=== PATIENT | male | born 1945 | race Caucasian/White ===

== ENCOUNTER → 2017-02-09 | Outpatient (CLI) | payer OTHER ==
[~2017-02-09] MED LIST: ASPEC81 PO; CLOP1TAB15 PO; LISI40TA PO; LRT5 PO; METO1TAB69 PO; NTRGSL/4 UT; PRAV20TA PO
== END ==
LOC: C.LABBC 09:02
PROVIDERS: ATTEND Urology
DX: R97.20 Elevated prostate specific antigen [PSA] (principal)

== ENCOUNTER → 2018-04-07 | Outpatient (CLI) | payer OTHER ==
[~2018-04-07] MED LIST changes: +METO100T44 PO; -METO1TAB69 PO
[2018-04-07 13:32] LABS: BASO % 0.7 %; BASO ABS # 0.03 K/uL (0-0.2); EOS ABS # 0.26 K/uL (0-0.5); HEMATOCRIT 50.6 % (42-52); HEMOGLOBIN 17.4 g/dL (14.0-18.0); IG# 0.03 K/uL (0.00-0.02); LYMPH % 27.5 %; LYMPH ABS # 1.19 K/uL (1.2-3.4); MEAN CELL VOLUME 90.4 fL (80-100); MEAN CORPUSCULAR HEMOGLOBIN 31.1 pg (25-34); MEAN CORPUSCULAR HGB CONC 34.4 g/dl (32-36); MEAN PLATELET VOLUME 10.6 fL (7.4-10.4); MONO % 11.3 %; MONO ABS # 0.49 K/uL (0.11-0.59); NEUT % 53.8 %; NEUT ABS # 2.33 K/uL (1.4-6.5); PLATELET COUNT 119 K/uL (130-400); RED CELL DISTRIBUTION WIDTH CV 14.2 % (11.5-14.5); WHITE BLOOD COUNT 4.33 K/uL (4.8-10.8)
[2018-04-07 14:02] LABS: HEMOGLOBIN A1C 5.8 % (4.5-5.6)
[2018-04-07 14:14] LABS: ALBUMIN 3.7 gm/dl (3.4-5.0); ALT/SGPT 20 U/L (12-78); AST/SGOT 19 U/L (15-37); BLOOD UREA NITROGEN 17 mg/dl (7-18); CALCIUM 8.3 mg/dl (8.5-10.1); CARBON DIOXIDE 29 mmol/L (21-32); CREATININE 1.16 mg/dl (0.60-1.40); GLUCOSE 92 mg/dl (70-99); POTASSIUM 4.1 mmol/L (3.5-5.1); SODIUM 139 mmol/L (136-145)
[2018-04-07 14:26] LABS: ALKALINE PHOSPHATASE 68 U/L (45-117); CHOLESTEROL 217 mg/dl (0-200); LDL CHOLESTEROL CALCULATED 145 mg/dl
== END | disposition home or self-care (01) ==
LOC: C.LABPBG 07:30
PROVIDERS: ATTEND Internal Medicine
DX: I25.10 Atherosclerotic heart disease of native coronary artery without angina pectoris (principal); I10 Essential (primary) hypertension; E78.5 Hyperlipidemia, unspecified; R73.03 Prediabetes; D69.6 Thrombocytopenia, unspecified; R97.20 Elevated prostate specific antigen [PSA]; N40.1 Benign prostatic hyperplasia with lower urinary tract symptoms

== ENCOUNTER 2023-10-23 16:49 | Observation (INO) ==
[2023-10-23] MEDS ORDERED: ONDANSETRON INJ 2 MG/ML 2 ML VIAL IV STA (17:00)
[2023-10-23] MEDS ORDERED: SODIUM CHLORIDE 0.9% 500 ML IV STA (17:00)
--- NOTE | 2023-10-23 17:00 | Emergency Department Note ---
Impression & Plan Atypical chest pain, Hx of CABG, Nausea, Back pain ED Provider Note Provider: Fran Guillermo MD DATE OF SERVICE: 10/23/2023 CHIEF COMPLAINT: Chest back arm pain, nausea HISTORY OF PRESENT ILLNESS: Patient is a 77-year-old gentleman history of hiatal hernia, CAD with CABG in the distant past, BPH, and hypertension presenting here today reporting onset 2 days ago of pain in his back to left chest region that is been worsening. Endorses some nausea has not been able to eat since yesterday. Fairly significant pain in the back to the left forearm. Hurts more with movements particularly in his back and when he touches his left forearm. 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 Denies obvious trauma. Denies any abdominal pain reports some nausea. Denies difficulty breathing. Denies travel or leg swelling. Reports compliance with home baby aspirin. Did take some ibuprofen that helped with the pain earlier. About an hour and a half prior to arrival the patient had a brief episode of sweating and with these complaints family thought he should come here for evaluation. Does not follow that closely with doctors according to family. PAST MEDICAL HISTORY: As noted above MEDICATIONS: Reviewed home medications. SOCIAL HISTORY: , non-smoker PHYSICAL EXAM: GENERAL: alert and oriented in no acute distress on stretcher Head: normocephalic and atraumatic EYES: No injection, discharge or icterus. PERRL, EOMI. NECK: Trachea midline. Supple although some pain at the base of the lower neck to upper back with palpation of the area without significant contusion or hematoma appreciated. ENT: Mucous membranes pink and moist. LUNGS: Airway patent. No retractions. Breath sounds clear HEART: Regular rate and rhythm. No chest wall tenderness ABDOMEN: Soft and non-tender, without guarding or rebound. SKIN: Acyanotic, warm, dry, without rashes EXTREMITIES: Without swelling, tenderness or deformity with a little bit of pain to the left forearm when touching but soft compartment. Neurovascular intact distally. NEUROLOGICAL: No focal deficits. No aphasia. No facial droop or slurred speech. Normal strength and tone in the extremities. Sensation to gross touch normal. Ambulatory. EK bpm normal sinus rhythm. No PVC or PAC. No acute ST segment elevation with a QTc of 396. Some nonspecific lateral T wave changes noted. CONTINUOUS CARDIAC MONITORING: was ordered and showed a heart rate of 70s to 80s bpm in normal sinus rhythm PDMP was checked without noted issue. Patient's laboratory studies and imaging reviewed. Differential includes Cardiac ischemia, aortic dissection, pulmonary embolism, pneumothorax, pneumonia, pericarditis, myocarditis, esophageal rupture, GERD, cholecystitis, pancreatitis, musculoskeletal, as well as other pathologies. IMPRESSION/MEDICAL DECISION MAKING: Patient with distant cardiac history on aspirin here with some pain in the upper back to the left arm but reproducible to some degree. Some transient sweating an hour and a half ago as well as some nausea and inability to really eat much since yesterday. Benign abdomen however and denies abdominal pain. No sick contact or leg swelling reported. 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 Blood pressure is elevated upon arrival. Given a dose of nitroglycerin as well as some Zofran and Toradol to help with symptoms here initially. Blood pressure improved. Blood work sent without evidence of significant renal dysfunction or electrolyte abnormality. Mild thrombocytopenia and leukopenia appears chronic in nature. No findings of hepatitis or pancreatitis based on labs. High-sensitivity troponin returns at 5.5 well within normal range. Chest x-ray questions atelectasis versus left basilar pneumonia. He denies again significant shortness of breath or respiratory symptoms and low suspicion this represents an infectious etiology. Again not hypoxic or tachycardic and I doubt the patient suffering from a PE. Low suspicion for dissection given the ongoing nature and reproducibility of pain discomfort here on exam. No significant anemia on blood work. Blood pressure is improved on reassessment the patient's pain is doing better. Patient states slight headache but nausea is better and is not having any significant arm or upper back discomfort. Maybe a little bit of slight low back discomfort and helped him readjust in the bed. Will repeat troponin to look for any changes with a 2-hour delta. He was in agreement. Repeat troponin obtained and is approximately same to slightly less than 4. This is reassuring. Discussed with patient and family member at bedside. Believe likely more musculoskeletal type chest pain and did tolerate oral intake here. Discussed options. Discussed that heart score is elevated but given his age and cardiac history at baseline this would be elevated with any complaint of chest discomfort. Discussed initial recommendation that we could have him follow-up closely in the outpatient setting and monitor his symptoms. In discussion with him however he is uncomfortable with this and states he felt something was just not right and wished to be observed overnight. Given full dose aspirin and discussed with the hospitalist team. DIAGNOSIS: atypical chest pain, nausea, back pain DISPOSITION: Being evaluated by the hospitalist Patient was agreeable with this plan. Past Med/Surg History Medical History (Updated 10/23/23 @ 20:54 by Fran Guillermo M.D.) Inflamed skin tag Heart trouble Epidermal cyst of face Acute myocardial infarction Acute bronchitis, bacterial Thrombocytopenia Pre-diabetes Male erectile disorder of organic origin Hiatal hernia Ganglion cyst of dorsum of right wrist Benign prostatic hyperplasia with urinary obstruction Cerebral atherosclerosis Arteriosclerotic cardiovascular disease (ASCVD) Benign prostatic hyperplasia Elevated PSA Hyperlipidemia Hypertension Arteriosclerosis Sciatica Surgical History (Updated 10/23/23 @ 20:00 by Fran Guillermo M.D.) S/P gastric surgery S/P CABG x 4 S/P appendectomy Hx of CABG History of appendectomy Family History Father Cardiac disorder Sister Brain cancer Brain tumor Denies family history of Ovarian cancer Prostate cancer Myocardial infarction Breast cancer Colorectal cancer Social History Smoking Status: Never smoker Second Hand Exposure: No; Do You Dip or Chew Tobacco: No; Hx Alcohol Use: No (quit 1974) Hx Substance Use: No Preferred Language: Uzbek Communication Ability: Effective Visual Impairment: No Limitations Hearing Ability: Use of Hearing Aid Beliefs That Will Affect Care: None marital status: Current Living Situation: Spouse current occupational status: employed 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 Feels Safe at Home: Yes Childhood Exposure to Second-Hand Smoke: No Diet: regular caffeine: Yes during the past year weight has: remained stable Dental Care, Regularly: No Physical Activity Frequency: Daily Seatbelt Use: sometimes Sunscreen Use: No Allergies Allergies Allergy/AdvReac Type Severity Reaction Status Date / Time Influenza Virus Vaccines Allergy Intermediate SWELLING Verified 10/23/23 18:26 AT INJECTION SITE atorvastatin [From Lipitor] AdvReac Intermediate MUSCLE Verified 10/23/23 18:26 WEAKNESS Iodinated Contrast Media AdvReac Intermediate VOMITING Verified 10/23/23 18:26 meperidine AdvReac Intermediate DIZZY, LOW Verified 10/23/23 18:26 BP pravastatin AdvReac Intermediate MUSCLE Verified 10/23/23 18:26 WEAKNESS promethazine AdvReac Intermediate DIZZY, LOW Verified 10/23/23 18:26 BP rosuvastatin [From Crestor] AdvReac Intermediate MUSCLE Verified 10/23/23 18:26 WEAKNESS simvastatin [From Zocor] AdvReac Intermediate MUSCLE Verified 10/23/23 18:26 WEAKNESS Home Meds Home Medications Medication Instructions Recorded Confirmed aspirin 81 mg tablet,delayed 81 mg PO DAILY 12/17/18 10/23/23 release Previous Rx's Medication Instructions Recorded lisinopril 40 mg tablet 40 mg PO DAILY #90 tabs 01/24/23 clopidogrel 75 mg tablet (Plavix) 75 mg PO DAILY #90 tabs 02/09/23 metoprolol succinate 100 mg 100 mg PO DAILY #90 tabs 02/09/23 tablet,extended release 24 hr (Toprol XL) sildenafil 100 mg tablet 100 mg PO DAILY PRN sexual 05/05/23 activity #10 tabs Results & Data (ED) Vital Signs Vital Signs - 24 hr 10/23/23 16:51 10/23/23 17:08 10/23/23 17:48 Temperature 36.8 C Temperature Source Temporal Artery Scan Pulse Rate 82 79 Pulse Rate [Apical] 76 Respiratory Rate 18 18 Respiratory Effort / Characteristics Non-Labored Spontaneous Respiratory Depth Normal Respiratory Pattern Regular Blood Pressure 191/100 H Blood Pressure [Right Arm] 123/73 Blood Pressure Mean 130 Blood Pressure Mean [Right Arm] 89 Blood Pressure Position Sitting Pulse Oximetry 95 94 Oxygen Delivery Method Room Air Sepsis Recent Fever Within 48 Hours No Sepsis New/Unexplained Change in Mental Status No Sepsis Action Taken by Nursing No Action Required 10/23/23 18:39 Temperature Temperature Source Pulse Rate Pulse Rate [Apical] 72 Respiratory Rate 18 Respiratory Effort / Characteristics Respiratory Depth Respiratory Pattern Blood Pressure Blood Pressure [Right Arm] 116/84 Blood Pressure Mean Blood Pressure Mean [Right Arm] 94 Blood Pressure Position Pulse Oximetry 94 Oxygen Delivery Method Room Air Sepsis Recent Fever Within 48 Hours Sepsis New/Unexplained Change in Mental Status Sepsis Action Taken by Nursing Laboratory Data 10/23/23 17:01 10/23/23 17:01 Lab Results 10/23/23 10/23/23 Range/Units 17:01 19:02 WBC 3.49 L (4.8-10.8) K/ul RBC 5.43 (4.70-6.10) M/uL Hgb 17.3 (14.0-18.0) g/dl Hct 50.3 (42.0-52.0) % MCV 92.6 (80.0-100.0) fL MCH 31.9 (25.0-34.0) pg MCHC 34.4 (32.0-36.0) g/dL RDW Std Deviation 45.1 (36.4-46.3) fL RDW Coeff of Memo 13.3 (11.5-14.5) % Plt Count 125 L (130-400) K/uL MPV 10.1 (9.4-12.4) fL Immature Gran % (Auto) 0.3 % Neut % (Auto) 66.4 % Lymph % (Auto) 14.6 % [place] % (Auto) 17.5 % Eos % (Auto) 0.6 % Baso % (Auto) 0.6 % Neut # (Auto) 2.32 (1.40-6.50) K/uL Lymph # (Auto) 0.51 L (1.20-3.40) K/uL [place] # (Auto) 0.61 H (0.11-0.59) K/uL Eos # (Auto) 0.02 (0.00-0.50) K/uL Baso # (Auto) 0.02 (0.00-0.20) K/uL Immature Gran # (Auto) 0.01 (0.01-0.20) K/uL PT 11.9 (9.0-12.0) Seconds INR 1.1 (0.9-1.1) Sodium 136 (136-145) mmol/L Potassium 4.3 (3.5-5.1) mmol/L Chloride 101 (98-107) mmol/L Carbon Dioxide 28 (21-32) mmol/L Anion Gap 7 (3-11) BUN 18 (6-23) mg/dl Creatinine 1.24 (0.6-1.4) mg/dl Est Cr Clr Drug Dosing 50.7 ml/min Est GFR ( Amer) 64.1 ml/min Est GFR (Non-Af Amer) 55.3 ml/min BUN/Creatinine Ratio 14.5 (10-20) Glucose 106 H (70-99(Fasting)) mg/dl Calcium 9.4 (8.6-10.3) mg/dl Total Bilirubin 0.8 (0.2-1.0) mg/dl AST 22 (13-39) U/L ALT 14 (7-52) U/L Alkaline Phosphatase 72 (34-104) U/L Troponin I High Sens 5.5 4.0 (0-20) pg/ml Total Protein 7.2 (6.0-8.3) gm/dl Albumin 4.5 (3.4-5.0) gm/dl Globulin 2.7 (2.5-4.0) gm/dl Albumin/Globulin Ratio 1.7 (0.9-2) Lipase 48 (11-82) U/L Administered Medications Discontinued Medications Aspirin (Aspirin Chew 324 Mg) 243 mg PO NOW STA Stop: 10/23/23 20:00 Last Admin: 10/23/23 20:07 Dose: 243 mg Documented By: GLENROY Sodium Chloride (Nss) 500 mls @ 999 mls/hr IV .Q31M STA Stop: 10/23/23 17:30 Last Infusion: 10/23/23 18:41 Dose: Infused Documented By: NRRavin Admin: 10/23/23 17:28 Dose: 999 mls/hr Documented By: GLENROY Ketorolac Tromethamine (Ketorolac Tromethamine 15 Mg/Ml Vial) 10 mg IV NOW ONE Stop: 10/23/23 17:29 Last Admin: 10/23/23 17:31 Dose: 10 mg Documented By: GLENROY Nitroglycerin (Nitroglycerin Sl 0.4 Mg/Tab Tab) 0.4 mg SL NOW STA Stop: 10/23/23 17:29 Last Admin: 10/23/23 17:31 Dose: 0.4 mg Documented By: NRB Ondansetron HCl (Ondansetron Inj 2 Mg/Ml 2 Ml Vial) 4 mg IV NOW STA Stop: 10/23/23 17:01 Last Admin: 10/23/23 17:28 Dose: 4 mg Documented By: GLENROY Imaging Data Radiologist's Impression: Chest X-Ray 10/23/23 17:01 XR chest 1V portable HISTORY: Atypical chest pain. Nausea. COMPARISON: Chest and abdominal series 08/22/2011. FINDINGS: No pneumothorax. No pleural effusions. The heart is normal in size. There are poststernotomy changes. The right lung is clear. Patchy left basilar densities are noted. IMPRESSION: Patchy left basilar densities. This may represent atelectasis or pneumonia. ACT 112: Negative or not required by law. Electronically signed by: Romulo Vang M.D. 10/23/2023 5:58 PM Discharge Plan Visit Data Chief Complaint: Chest Pain Stated Complaint: CHEST PAIN, ARM PAIN, BACK PAIN ED Provider: Fran Guillermo Discharge Problem: Atypical chest pain, Hx of CABG, Nausea, Back pain Patient Disposition: Being Evaluated by Hospitalist Forms Stand Alone Forms: [facility] [email or web address] Prescriptions Prescriptions: No Action aspirin 81 mg tablet,delayed release (DR/EC) 81 mg PO DAILY lisinopril 40 mg tablet 40 mg PO DAILY Qty: 90 3RF clopidogrel [Plavix] 75 mg tablet 75 mg PO DAILY Qty: 90 3RF metoprolol succinate [Toprol XL] 100 mg tablet extended release 24 hr 100 mg PO DAILY Qty: 90 3RF sildenafil 100 mg tablet 100 mg PO DAILY PRN (Reason: sexual activity) Qty: 10 3RF Rx Instructions: administer 30 minutes to 4 hours before activity Referrals Referrals: PCP,NO [Physician] -
[2023-10-23] MEDS ORDERED: NITROGLYCERIN SL 0.4 MG/TAB TAB SL STA (17:28)
[2023-10-23] MEDS ORDERED: KETOROLAC TROMETHAMINE 15 MG/ML VIAL IV ONE (17:28)
[2023-10-23 17:52] LABS: Albumin Globulin Ratio 1.7 (0.9-2); Albumin Level 4.5 gm/dl (3.4-5.0); BUN Creatinine Ratio 14.5 (10-20); Bilirubin,Total 0.8 mg/dl (0.2-1.0); Calcium 9.4 mg/dl (8.6-10.3); Creatinine Clr Calc Pharmacy 50.7 ml/min; Est GFR (African American) 64.1 ml/min; Est GFR (Non-African American) 55.3 ml/min; Globulin 2.7 gm/dl (2.5-4.0); Potassium 4.3 mmol/L (3.5-5.1); Total Protein 7.2 gm/dl (6.0-8.3)
[2023-10-23 17:59] LABS: INR 1.1 (0.9-1.1); Prothrombin Time 11.9 Seconds (9.0-12.0); Troponin I High Sensitivity 5.5 pg/ml (0-20)
--- NOTE | 2023-10-23 18:00 | XRay Report ---
XR chest 1V portable HISTORY: Atypical chest pain. Nausea. COMPARISON: Chest and abdominal series 08/22/2011. FINDINGS: No pneumothorax. No pleural effusions. The heart is normal in size. There are poststernotom y changes. The right lung is clear. Patchy left basilar densities are noted. IMPRESSION: Patchy left basilar densities. This may represent atelectasis or pneumonia. ACT 112: Negative or not required by law. Electronically signed by: Romulo Vang M.D. 10/23/2023 5:58 PM
[2023-10-23 18:07] LABS: Hematocrit (blood only) 50.3 % (42.0-52.0); Hemoglobin 17.3 g/dl (14.0-18.0); Mean Corpuscular Hemoglobin 31.9 pg (25.0-34.0); Mean Corpuscular Hgb Conc 34.4 g/dL (32.0-36.0); Mean Corpuscular Volume 92.6 fL (80.0-100.0); Mean Platelet Volume 10.1 fL (9.4-12.4); Platelet Count 125 K/uL (130-400); RDW Coefficient of Variation 13.3 % (11.5-14.5); RDW Standard Deviation 45.1 fL (36.4-46.3); Red Blood Count 5.43 M/uL (4.70-6.10); White Blood Count 3.49 K/ul (4.8-10.8)
[2023-10-23 18:23] LABS: Basophils # (auto) 0.02 K/uL (0.00-0.20); Basophils % (auto) 0.6 %; Eosinophils # (auto) 0.02 K/uL (0.00-0.50); Eosinophils % (auto) 0.6 %; Immature Granulocytes # (auto) 0.01 K/uL (0.01-0.20); Immature Granulocytes % (auto) 0.3 %; Lymphocytes # (auto) 0.51 K/uL (1.20-3.40); Lymphocytes % (auto) 14.6 %; Monocytes # (auto) 0.61 K/uL (0.11-0.59); Monocytes % (auto) 17.5 %; Neutrophils # (auto) 2.32 K/uL (1.40-6.50); Neutrophils % (auto) 66.4 %
[2023-10-23] MEDS ORDERED: ASPIRIN CHEW 324 MG PO STA (19:59)
--- NOTE | 2023-10-23 21:01 | History & Physical Report ---
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 CBC (2) Atypical chest pain: Plan: Toradol and nitroglycerin given in the ED He noted that the patient denies ever having chest pain this past week, and repo rts that at it has been solely in his back; no CP, pleuritic CP, or SOB Troponin WNL at 4.0 EKG showed NSR at 80 bpm; QTc 396 CXR revealed patchy left basilar densities which may represent atelectasis or pneumonia No leukocytosis; afebrile Continuous telemetry monitoring (3) Nausea: Plan: Patient has not eaten since 10/22 due to loss of appetite Zofran 4 mg IV q6h as needed for nausea (4) Hx of CABG: Plan: CABG x4 Continue aspirin, Plavix (5) Hypertension: Plan: BP 116/84 on arrival Continue metoprolol, lisinopril Plan Disposition: Obs - Admit to MedSurg telemetry Full code AHA diet VTE PPx: TEDs History of Present Illness Chief Complaint: Chest and back pain Primary Care Provider: GENET Zhu Rene is a 77-year-old male with PMH of BPH, CABG, HTN, HLD, and ASCVD. He presented for pain in the upper back accompanied by a 1 hour episode of diaphoresis on 10/23. Patient reports that the back pain started 2 days ago. He describes it as constant. It is exacerbated by movement. Patient reports he took ibuprofen (500 mg) on 10/22 for the pain, which helped. 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 He denies any pas t episodes of diaphoresis like the one he experienced on 10/23. Patient also endorses being nauseous, and that he has been unable to eat since 10/22. He took all of his morning medications; no recent change in medications. Patient denies tobacco use, alcohol use, vaping, or recreational drug use. Vital stable at time of admission. ED course: IVF Zofran 4 mg IV Toradol 10 mg IV Nitroglycerin 0.4 mg SL Aspirin 243 mg p.o. ROS: Patient endorses SU, productive cough (clear), dizziness, one episode of sweating at 1600 today that brought him into the ED, nausea, back pain Patient denies fever, SOB, pleuritic CP, abdominal pain, vomiting, diarhea, burning with urination, blood in urine/stool, dysuria, or numbness/tingling in pain. Per patient, no PMHx of DVT/PE, CVA, diabetes, or cancer Allergies Allergy/AdvReac Type Severity Reaction Status Date / Time Influenza Virus Vaccines Allergy Intermediate SWELLING Verified 10/23/23 18:26 AT INJECTION SITE atorvastatin [From Lipitor] AdvReac Intermediate MUSCLE Verified 10/23/23 18:26 WEAKNESS Iodinated Contrast Media AdvReac Intermediate VOMITING Verified 10/23/23 18:26 meperidine AdvReac Intermediate DIZZY, LOW Verified 10/23/23 18:26 BP pravastatin AdvReac Intermediate MUSCLE Verified 10/23/23 18:26 WEAKNESS promethazine AdvReac Intermediate DIZZY, LOW Verified 10/23/23 18:26 BP rosuvastatin [From Crestor] AdvReac Intermediate MUSCLE Verified 10/23/23 18:26 WEAKNESS simvastatin [From Zocor] AdvReac Intermediate MUSCLE Verified 10/23/23 18:26 WEAKNESS Home Medications Medication Instructions Recorded Confirmed Type aspirin 81 mg tablet,delayed 81 mg PO DAILY 12/17/18 10/23/23 History release lisinopril 40 mg tablet 40 mg PO DAILY #90 tabs 01/24/23 10/23/23 Rx clopidogrel 75 mg tablet (Plavix) 75 mg PO DAILY #90 tabs 02/09/23 10/23/23 Rx metoprolol succinate 100 mg 100 mg PO DAILY #90 tabs 02/09/23 10/23/23 Rx tablet,extended release 24 hr (Toprol XL) sildenafil 100 mg tablet 100 mg PO DAILY PRN sexual 05/05/23 10/23/23 Rx activity #10 tabs Past Med/Surg History Medical History (Updated 10/23/23 @ 20:54 by Fran Guillermo M.D.) Inflamed skin tag Heart trouble Epidermal cyst of face Acute myocardial infarction Acute bronchitis, bacterial Thrombocytopenia Pre-diabetes Male erectile disorder of organic origin Hiatal hernia Ganglion cyst of dorsum of right wrist Benign prostatic hyperplasia with urinary obstruction Cerebral atherosclerosis Arteriosclerotic cardiovascular disease (ASCVD) Benign prostatic hyperplasia Elevated PSA Hyperlipidemia Hypertension Arteriosclerosis Sciatica Surgical History (Updated 10/23/23 @ 20:00 by Fran Guillermo M.D.) S/P gastric surgery S/P CABG x 4 S/P appendectomy Hx of CABG History of appendectomy Family History Father Cardiac disorder Sister Brain cancer Brain tumor Denies family history of Ovarian cancer Prostate cancer Myocardial infarction Breast cancer Colorectal cancer Social History Smoking Status: Never smoker Second Hand Exposure: No; Do You Dip or Chew Tobacco: No; Tobacco Cessation Education Requested by Patient: No Hx Alcohol Use: No Hx Substance Use: No Preferred Language: Luxembourgish Communication Ability: Effective Visual Impairment: No Limitations Hearing Ability: Use of Hearing Aid Driller And Broacher Required: No Beliefs That Will Affect Care: None marital status: Current Living Situation: Spouse and Family current occupational status: employed 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 Other Information That Helps Us Care for You: No Feels Safe at Home: Yes Safety Concerns: Feels Safe At This Time Childhood Exposure to Second-Hand Smoke: No Diet: regular caffeine: Yes during the past year weight has: remained stable Dental Care, Regularly: No Physical Activity Frequency: Daily Seatbelt Use: sometimes Sunscreen Use: No Assistive Devices: None Review of Systems Review of Systems: See HPI above Physical Exam Physical Exam: General: no acute distress; pleasant affect; non-toxic appearing; cooperative HEENT: normocephalic, atraumatic; no scleral icterus; PERRLA w/ EOMs intact; moist mucus membrane; vision and hearing grossly intact Neck: supple; no JVD; no lymphadenopathy; trachea midline Skin: warm, dry without signs of tenting; no cyanosis; no rashes, bruising, lesions, or erythema noted CV: chest wall NTP; RRR; S1/S2 normal; no murmurs/rubs/gallops; pulses intact and symmetric at radial, DP, and PT Lungs: no acute respiratory distress; symmetrical chest wall expansion; clear breath sounds across all lung aquino w/o adventitious sounds; no wheezing ABD: Soft, NTP; BS present; no rebound/guarding; no ascites Back: No rashes or signs of bruising; lumbar spine NTP; upper/middle back NTP; negative CVA tenderness MSK: no tics or fasciculations; no edema noted in the LEs b/l Neuro: A&Ox3; normal mood and affect; fluent speech; no focal deficits; sensation grossly intact Results & Data Results & Data Vital Signs (Past 12 Hours) Vital Signs Temp Pulse Pulse Resp BP BP Pulse Ox 10/23/23 18:39 72 18 116/84 94 10/23/23 17:48 76 18 123/73 94 10/23/23 17:08 79 10/23/23 16:51 36.8 C 82 18 191/100 H 95 O2 Del Method 10/23/23 18:39 Room Air 10/23/23 17:48 10/23/23 17:08 10/23/23 16:51 Room Air Laboratory Results Abnormal lab results 10/23/23 Range/Units 17:01 WBC 3.49 L (4.8-10.8) K/ul Plt Count 125 L (130-400) K/uL Lymph # (Auto) 0.51 L (1.20-3.40) K/uL [place] # (Auto) 0.61 H (0.11-0.59) K/uL Glucose 106 H (70-99(Fasting)) mg/dl Diagnostic Findings Chest X-Ray 10/23/23 17:01 XR chest 1V portable HISTORY: Atypical chest pain. Nausea. COMPARISON: Chest and abdominal series 08/22/2011. FINDINGS: No pneumothorax. No pleural effusions. The heart is normal in size. There are poststernotomy changes. The right lung is clear. Patchy left basilar densities are noted. IMPRESSION: Patchy left basilar densities. This may represent atelectasis or pneumonia. ACT 112: Negative or not required by law. Electronically signed by: Romulo Vang M.D. 10/23/2023 5:58 PM Code Status & VTE Plan Code Status Full code VTE Prophylaxis Plan VTE Prophylaxis will be ordered: Yes Supervising Physician Co-Signing Physician Notes Attending addendum: I have physically seen this patient, have supervised the LULU's activities, and agree with the H&P unless as otherwise noted. 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 The patient will be admitted to medical telemetry for serial cardiac enzymes, serial EKG's, cardiac rhythm monitoring and a 2-D echocardiogram with Dopplers. Due to age and exertional activity, pursue the above workup Continue aspirin, clopidogrel, lisinopril and metoprolol succinate Chest x-ray findings as noted are likely not consequential and not symptomatic Check a fasting lipid panel, renal function panel and troponin in a.m. Elevated PSA- Being followed as an outpatient Remaining orders and notations as noted PG Care Time/CCT Total # of Minutes Spent Total Time Spent with Patient: Total time spent is greater than 50% in coordination of care (as documented) at patient's floor/unit and/or counseling patient: C[place] [address] INT INP/OBS CARE 2/55MIN Patient Type Established Medical Decision Making Straight Forward Diagnoses Back pain M54.9 Atypical chest pain R07.89 Nausea R11.0 Hx of CABG Z95.1 Essential hypertension I10 Hypertension type: essential hypertension (5) Hypertension Hypertension type: essential hypertension Qualified Code(s): I10 - Essential (primary) hypertension
[2023-10-24] MEDS ORDERED: ONDANSETRON INJ 2 MG/ML 2 ML VIAL IV PRN (00:16)
[2023-10-24] MEDS: ACETAMINOPHEN 325 MG TAB PO PRN ×2 (04:01→07:39)
--- NOTE | 2023-10-24 06:05 | Billing Data ---
Date of Service October 24, 2023 Coding Level of Care Code 99666 INT INP/OBS CARE
[2023-10-24 07:12] LABS: Basophils # (auto) 0.02 K/uL (0.00-0.20); Basophils % (auto) 0.8 %; Eosinophils # (auto) 0.01 K/uL (0.00-0.50); Eosinophils % (auto) 0.4 %; Hematocrit (blood only) 49.3 % (42.0-52.0); Hemoglobin 16.2 g/dl (14.0-18.0); Lymphocytes # (auto) 0.56 K/uL (1.20-3.40); Mean Corpuscular Hgb Conc 32.9 g/dL (32.0-36.0); Mean Corpuscular Volume 94.4 fL (80.0-100.0); Mean Platelet Volume 9.9 fL (9.4-12.4); Monocytes # (auto) 0.44 K/uL (0.11-0.59); Monocytes % (auto) 18.1 %; Neutrophils % (auto) 57.7 %; Platelet Count 103 K/uL (130-400); RDW Coefficient of Variation 13.5 % (11.5-14.5); RDW Standard Deviation 47.1 fL (36.4-46.3); Red Blood Count 5.22 M/uL (4.70-6.10); White Blood Count 2.43 K/ul (4.8-10.8)
[2023-10-24 07:22] LABS: BUN Creatinine Ratio 16.7 (10-20); Calcium 8.6 mg/dl (8.6-10.3); Chol HDL Ratio 5.9 (0-5); Creatinine Clr Calc Pharmacy 47.6 ml/min; Est GFR (African American) 59.5 ml/min; Est GFR (Non-African American) 51.3 ml/min; Phosphorus 3.3 mg/dl (2.5-4.9); Potassium 4.3 mmol/L (3.5-5.1)
[2023-10-24 07:29] LABS: Troponin I High Sensitivity 6.3 pg/ml (0-20)
[2023-10-24] MEDS ORDERED: diphenhydrAMINE 50 MG/ML VIAL IV STA (08:00)
--- NOTE | 2023-10-24 08:29 | Electrocardiogram Report ---
Test Reason : Blood Pressure : / mmHG Vent. 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
[2023-10-24] MEDS ORDERED: METOPROLOL SUCC 50MG EXT REL TAB PO SCH (09:00)
[2023-10-24] MEDS ORDERED: CLOPIDOGREL BISULFATE 75 MG TAB PO SCH (09:00)
[2023-10-24] MEDS ORDERED: lisinopril 40 MG TAB PO SCH (09:00)
[2023-10-24] MEDS ORDERED: ASPIRIN 81 MG ECTAB PO SCH (09:00)
--- NOTE | 2023-10-24 10:26 | Magnetic Resonance Report ---
LUMBAR SPINE MRI HISTORY: Low back pain TECHNIQUE: Multiplanar multisequence MRI of the lumbar spine was performed without the use of contras t. COMPARISON: Lumbar spine MRI 12/16/2018. FINDINGS: For the purpose of the report the L5-S1 disc space will be located on axial image 27 of 30. Mild dextroscoliosis centered at the upper lumbar spine. No acute fractures identified. The visualize d sacrum is intact. Endplate osteophytes are seen throughout the lumbar spine. No suspicious osseous lesions identified. Neiq-lh-maxuxghw facet degenerative changes seen throughout the lumbar spine. Par avertebral soft tissues are unremarkable. The partially visualized 1.7 cm T2 hyperintense lesion with in the right kidney. This favors a cyst. Incidental note is made of a fatty filum terminale measure u p to 2 mm in thickness. This remains unchanged. The conus terminus at the T12-L1 disc space level. Th erefore, no evidence for a tethered cord. Small broad-based posterior disc bulges within the lower th oracic spine resulting in mild central canal and mild bilateral neural foraminal narrowing. This is s imilar to the prior study. Moderate to severe disc space narrowing seen throughout the lumbar spine. This is similar to the prior study. L1-L2: Broad-based posterior disc bulge asymmetric to the left resulting in mild central canal and mi ld right neural foraminal narrowing. There is moderate left neural foraminal narrowing. There is mode rate narrowing of the left lateral recess which abuts the transiting left L2 nerve root. Broad-based posterior disc bulge slightly improved in the interval. L2-L3: Broad-based posterior disc bulge with mild ligamentum flavum and facet hypertrophy. No signifi cant central canal narrowing. There is mild to moderate bilateral neural foraminal narrowing, unchang ed. The disc bulge slightly improved in the interval. L3-L4: Broad-based posterior disc bulge with a right paracentral disc extrusion best seen on axial im age 16 which measures 7 mm. This abuts and displaces the transiting right L4 nerve root. The sequeste red disc fragment at this location seen on the prior study is no longer present. There is mild centra l canal and mild bilateral neural foraminal narrowing. L4-L5: Broad-based posterior disc bulge with an 8 mm left paracentral disc protrusion demonstrating m ild inferior subligamentous migration. This has slightly increased in size. This abuts and displaces the transiting left L5 nerve root and results in mild to moderate left-sided central canal narrowing. There is moderate to severe right and moderate left neural foraminal narrowing. L5-S1: Small broad-based posterior disc bulge without significant central canal narrowing. There is s evere bilateral neural foraminal narrowing due to the disc bulge and facet hypertrophy. This is simil ar to the prior study. IMPRESSION: 1. A 7 mm right paracentral disc extrusion at L3-L4 which abuts and displaces the transiting right L4 nerve root. 2. An 8 mm left paracentral disc protrusion at L4-L5 which abuts and displaces the transiting left L5 nerve root. 3. Additional multilevel degenerative changes as described above. 4. No acute fracture within the lumbar spine. ACT 112: Negative or not required by law. Electronically signed by: Romulo Vang M.D. 10/24/2023 10:24 AM
--- NOTE | 2023-10-24 11:25 | Discharge Summary ---
Date of Service October 24, 2023 Admission HPI Per Admitting Provider Rene is a 77-year-old male with PMH of BPH, CABG, HTN, HLD, and ASCVD. He presented for pain in the upper back accompanied by a 1 hour episode of diaphoresis on 10/23. Patient reports that the back pain started 2 days ago. He describes it as constant. It is exacerbated by movement. Patient reports he took ibuprofen (500 mg) on 10/22 for the pain, which helped. 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 He denies any past episodes of diaphoresis like the one he experienced on 10/23. Patient also endorses being nauseous, and that he has been unable to eat since 10/22. He took all of his morning medications; no recent change in medications. Patient denies tobacco use, alcohol use, vaping, or recreational drug use. Vital stable at time of admission. ED course: IVF Zofran 4 mg IV Toradol 10 mg IV Nitroglycerin 0.4 mg SL Aspirin 243 mg p.o. ROS: Patient endorses SU, productive cough (clear), dizziness, one episode of sweating at 1600 today that brought him into the ED, nausea, back pain Patient denies fever, SOB, pleuritic CP, abdominal pain, vomiting, diarhea, burning with urination, blood in urine/stool, dysuria, or numbness/tingling in pain. Per patient, no PMHx of DVT/PE, CVA, diabetes, or cancer Principal Diagnosis disc herniation Discharge Exam The patient is awake, alert and oriented 3, well developed and well nourished, normocephalic and atraumatic, lying in bed and in no acute distress. HEENT--PERRL, EOMI, mucous membranes and oropharynx mildly dry Neck--supple. No JVD. No bruits. Thyroid normal, trachea midline, no adenopathy. Heart--normal S1 and S2. No murmurs, rubs or gallops. Lungs--clear bilaterally, no respiratory distress, no accessory muscle use. Abdomen--normal bowel sounds and soft. Mild epigastric and left sided abdominal pain Extremities--no cyanosis or clubbing. No edema. Dermatologic--normal skin turgor, normal color, no abnormal lymph nodes, no rash. Neurologic--cranial nerves II through XII grossly intact. Rheumatologic--normal range of motion. Psychiatric--normal affect. Discharge Data Allergies Allergy/AdvReac Type Severity Reaction Status Date / Time Influenza Virus Vaccines Allergy Intermediate SWELLING Verified 10/23/23 18:26 AT INJECTION SITE atorvastatin [From Lipitor] AdvReac Intermediate MUSCLE Verified 10/23/23 18:26 WEAKNESS Iodinated Contrast Media AdvReac Intermediate VOMITING Verified 10/23/23 18:26 meperidine AdvReac Intermediate DIZZY, LOW Verified 10/23/23 18:26 BP pravastatin AdvReac Intermediate MUSCLE Verified 10/23/23 18:26 WEAKNESS promethazine AdvReac Intermediate DIZZY, LOW Verified 10/23/23 18:26 BP rosuvastatin [From Crestor] AdvReac Intermediate MUSCLE Verified 10/23/23 18:26 WEAKNESS simvastatin [From Zocor] AdvReac Intermediate MUSCLE Verified 10/23/23 18:26 WEAKNESS Consultations 10/23/23 20:19 ED Decision to Admit Stat Ordered Studies 10/24/23 07:47 MR lumbar spine wo con Routine Hospital Course (1) Back pain: Acute on chronic back pain x2 days 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, 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 2. An 8 mm left paracentral disc protrusion at L4-L5 which abuts and displaces the transiting left L5 nerve root. Patient declined Ortho spine consult, said he would rather follow up outpatient (2) Atypical chest pain: Toradol and nitroglycerin given in the ED He noted that the patient denies ever having chest pain this past week, and reports that at it has been solely in his back; no CP, pleuritic CP, or SOB Troponin WNL at 4.0 EKG showed NSR at 80 bpm; QTc 396 CXR revealed patchy left basilar densities which may represent atelectasis or pneumonia No leukocytosis; afebrile Continuous telemetry monitoring (3) Nausea: Patient has not eaten since 10/22 due to loss of appetite Zofran 4 mg IV q6h as needed for nausea (4) Hx of CABG: CABG x4 Continue aspirin, Plavix (5) Hypertension: BP 116/84 on arrival Continue metoprolol, lisinopril Plan Disposition: Obs - Admit to [facility] telemetry Full code AHA diet VTE PPx: TEDs Total Time Total Time Spent Total Time Spent (In Minutes): 35 Discharge Plan Discharge Items Patient Disposition: Home - Self-Care Reason For Visit: CHEST PAIN, LOWER BACK PAIN Discharge Diagnosis: L3-L5 disc extrusion Activity: Per Instructions section Lifting: Gradually increase as tolerated Non-emergency contact: Primary Care Provider Call non-emergency contact if: you have any medication questions Follow-up/Referrals: Jose F Gutiérrez CRNP [Primary Care Provider] - Diet: Regular Addtl Attending Provider Instructions: Please make appointment to follow up with Dr Tim ramírez, Ortho spine surgeon as soon as possible Pending Studies at Discharge: No Stand-Alone Forms: My [employer], Smoking Cessation Medications and DC Order Prescriptions: New ibuprofen 600 mg tablet 600 mg PO Q8H PRN (Reason: pain) Qty: 10 0RF Continued aspirin 81 mg tablet,delayed release (DR/EC) 81 mg PO DAILY lisinopril 40 mg tablet 40 mg PO DAILY Qty: 90 3RF clopidogrel [Plavix] 75 mg tablet 75 mg PO DAILY Qty: 90 3RF metoprolol succinate [Toprol XL] 100 mg tablet extended release 24 hr 100 mg PO DAILY Qty: 90 3RF sildenafil 100 mg tablet 100 mg PO DAILY PRN (Reason: sexual activity) Qty: 10 3RF Rx Instructions: administer 30 minutes to 4 hours before activity Discharge Orders: Discharge Order (Routine); Ordered 10/24/23 Ordered By: Zo Urias Admission Data Admit Date/Time: 10/23/23 21:50 Attending Provider: Zo Urias Admit Provider: Reyes Hackett Primary Care Provider: Jose F Gutiérrez Other Providers: Reyes Hackett Coding Level of Care Code 48329 INP/OBS DISCH >30 MIN Diagnoses Back pain M54.9 Atypical chest pain R07.89 Nausea R11.0 Hx of CABG Z95.1 Essential hypertension I10 Hypertension type: essential hypertension Time Spent (min) 35
== END 2023-10-24 14:06 | disposition home or self-care (01) ==
LOC: ED 16:49 → 2N 16:49 → SUATTDRO 21:50 → 2N 23:49